=== PATIENT | female | born 1985 | race Caucasian/White ===

== ENCOUNTER 2018-07-28 17:48 | Emergency (ER) | payer OTHER ==
[~2018-07-28] VITALS: Ht 157.5 cm; Wt 68.0 kg
[2018-07-28 17:53] VITALS: BP 122/72
--- NOTE | 2018-07-28 19:11 | NUR ---
PT AMBULATED TO BED 1
[2018-07-28] MEDS ORDERED: NACL 0.9% 500 ML IV ONE (19:15)
[2018-07-28] MEDS ORDERED: ONDANSETRON 4 MG/2 ML VIAL IVP ONE (19:15)
--- NOTE | 2018-07-28 19:38 | NUR ---
32/F PRESENTS TO ED, C/O SHARP ABD PAIN AND CRAMPING LOWER QUADRANT, X3 DAYS. REPORTS NAUSEA, DENIES VOMITING. REPORTS DIARRHEA X1 DAY. AOX4, GCS 15, RR EVEN AND UNLABORED, SKIN PINK WARM AND DRY. LUNG SOUNDS CLEAR BL. BS HYPERACTIVE X4, ABD SOFT ROUND MILDLY TENDER TO TOUCH. DENIES MED HX, RX CONTROL, OTC TYLENOL
[2018-07-28 19:39] LABS: BASOPHILS % (AUTO) 0.7 % (0.0-2.0); EOSINOPHILS % (AUTO) 1.4 % (0.0-4.0); HEMATOCRIT 41.4 % (36-48); HEMOGLOBIN 14.2 g/dL (12.0-16.0); LYMPHOCYTES # (AUTO) 0.8 K/uL (2.5-16.5); LYMPHOCYTES % (AUTO) 23.8 % (20.5-51.1); MEAN CORPUSCULAR HEMOGLOBIN 31 pg (27-31); MEAN CORPUSCULAR HGB CONC 34 g/dL (33-37); MEAN CORPUSCULAR VOLUME 90.6 fL (80-94); MONOCYTES # (AUTO) 0.3 K/uL (0.8-1.0); MONOCYTES % (AUTO) 8.5 % (1.7-9.3); NEUTROPHILS # (AUTO) 2.3 K/uL (1.8-7.7); NEUTROPHILS % (AUTO) 65.6 % (42.2-75.2); PLATELET COUNT (AUTO) 144 K/uL (140-450); RED BLOOD CELL COUNT(AUTO) 4.57 MIL/uL (4.20-5.40); RED CELL DISTRIBUTION WIDTH 12.7 % (11.6-13.7); WHITE BLOOD COUNT (AUTO) 3.5 K/uL (4.8-10.8)
[2018-07-28] MEDS ORDERED: ACETAMINOPHEN 325 MG TAB PO ONE (19:40)
[2018-07-28 19:46] LABS: ANION GAP 14.3 (8-16); CARBON DIOXIDE 24.1 mmol/L (21-32); CREATININE 0.5 mg/dL (0.6-1.3); POTASSIUM 3.4 mmol/L (3.5-5.1)
[2018-07-28 19:52] LABS: ALBUMIN 3.3 g/dL (3.4-5.0); TOTAL BILIRUBIN 0.7 mg/dL (0.0-1.0)
[2018-07-28] MEDS ORDERED: PANTOPRAZOLE 40 MG INJ VIAL IVP ONE (20:15)
--- NOTE | 2018-07-28 20:35 | NUR ---
PT TAKEN TO XR
--- NOTE | 2018-07-28 20:53 | NUR ---
PT RETURN FROM XRAY
[2018-07-28 21:07] VITALS: BP 109/65
--- NOTE | 2018-07-28 21:07 | NUR ---
DISCHARGE PAPERWORK PROVIDED. 0/10 PAIN. NO GASTRIC PAIN. A&OX4. AFEBRILE. VERBALLIZED UNDERSTANDING OF DC INSTRUCTION. ALL QUESTIONS ANSWERED.
== END 2018-07-28 21:07 | disposition home or self-care (01) ==
LOC: MED 17:48
DX: K52.9 Noninfective gastroenteritis and colitis, unspecified (principal); Z88.2 Allergy status to sulfonamides
CPT/HCPCS: 36415; 74022; 80053; 81002; 81025; 83690; 85025; 96361; 96374; 96375; 99284; C9113; J2405; J7030